=== PATIENT | female | born 1985 | race Caucasian/White ===

== ENCOUNTER 2022-11-21 09:48 | Day surgery (SDC) | payer OTHER ==
[2022-11-21 10:23] VITALS: BMI 34.1
[2022-11-21] MEDS ORDERED: hydrALAZINE 20 MG/ML VIAL SLOW IVP PRN (10:56)
[2022-11-21 11:15] LABS: Bilirubin Neg (Negative); Blood, Urine Negative (Negative); Clarity Clear (Clear); Glucose, Urine (Dipstick) Normal (Negative); Ketone, Urine Negative (Negative); Leukocyte Negative (Negative); Nitrite Negative (Negative); Protein, Urine (Dipstick) Negative (Neg-Trace); Specific Gravity, Urine 1.005 (1.005-1.030); Urobilinogen Normal mg/dL (Less than 2)
[2022-11-21 11:30] LABS: Bacteria/HPF None Seen HPF (None Seen); CAUTI Indications for Culture Pregnancy; RBC/HPF None Seen HPF (0-3); Squamous Epithelial None Seen HPF (0-3); WBC/HPF None Seen HPF (0-3)
[2022-11-21 11:31] LABS: Urine Culture Reflex Yes Yes
[2022-11-21] MEDS ORDERED: Lactated Ringer's 1,000 ML IV SCH (11:45)
[2022-11-21 11:46] LABS: FFN Internal QC Analyzer PASS (PASS); FFN Internal QC Cassette PASS (PASS); Fetal Fibronectin Negative (Negative)
[2022-11-21] MEDS ORDERED: Acetaminophen 325 MG TAB PO SCH (12:00)
== END 2022-11-21 13:18 | disposition home or self-care (01) ==
LOC: CSHLD/OP 09:48
PROVIDERS: ATTEND Obstetrics & Gynecology
DX: O47.03 False labor before 37 completed weeks of gestation, third trimester (principal); Z3A.29 29 weeks gestation of pregnancy
CPT/HCPCS: 81001; 82731; 87086; 96360; 99285